=== PATIENT | male | born 1960 | race Asian ===

== ENCOUNTER 2023-10-25 08:57 | Emergency (ER) | payer OTHER, MEDICARE ==
[~2023-10-25] VITALS: Ht 167.6 cm; Wt 72.6 kg
[2023-10-25 09:32] VITALS: BP 141/86; PULSE 99; RESP 18; TEMP 97.6; O2SAT 99
[2023-10-25] MEDS ORDERED: NAPR-1704 PO (12:17)
[2023-10-25] MEDS ORDERED: TRAM-748 PO (12:17)
[2023-10-25 12:25] VITALS: BP 135/82; PULSE 78; RESP 16; TEMP 98; O2SAT 99
== END 2023-10-25 12:25 | disposition home or self-care (01) ==
LOC: MED 08:57
DX: S13.4XXA Sprain of ligaments of cervical spine, initial encounter (principal); S90.02XA Contusion of left ankle, initial encounter; S90.32XA Contusion of left foot, initial encounter; R03.0 Elevated blood-pressure reading, without diagnosis of hypertension; Z79.1 Long term (current) use of non-steroidal anti-inflammatories (NSAID); Z79.899 Other long term (current) drug therapy; V89.2XXA Person injured in unspecified motor-vehicle accident, traffic, initial encounter; Y93.89 Activity, other specified; Y92.89 Other specified places as the place of occurrence of the external cause; Y99.8 Other external cause status
CPT/HCPCS: 72040; 73590; 73630; 99284